=== PATIENT | female | born 2000 | race Hispanic/Latino ===

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

== ENCOUNTER 2025-01-28 01:07 | Emergency (ER) | payer MEDICARE ==
[~2025-01-28] VITALS: Ht 149.9 cm; Wt 77.1 kg
[2025-01-28 01:43] VITALS: PULSE 81; RESP 18; TEMP 98.5
[2025-01-28 02:28] LABS: BASOPHILS % 0.3 % (0.0-1.0); EOSINOPHILS # (AUTO) 0.1 (0.0-0.4); EOSINOPHILS % 0.9 % (0.0-6.0); HEMATOCRIT 34.5 % (34.2-44.1); HEMOGLOBIN 11.4 g/dL (12.0-16.0); LYMPHOCYTES % 22.1 % (18.0-39.1); MEAN CORPUSCULAR HEMOGLOBIN 27.7 pg (28-32); MEAN CORPUSCULAR VOLUME 83.7 fL (81-99); MONOCYTES % 11.1 % (4.4-11.3); NEUTROPHILS % 65.3 % (38.7-80.0); PLATELET COUNT 346 x10e3/uL (140-360); RED BLOOD COUNT 4.12 x10e6/uL (3.6-5.1); RED CELL DISTRIBUTION WIDTH 14.5 % (11.7-14.4); WHITE BLOOD COUNT 9.16 x10e3/uL (4.8-10.8)
[2025-01-28 02:35] LABS: BILIRUBIN,URINE NEGATIVE (NEGATIVE); CLARITY,URINE SL CLOUDY (CLEAR); COLOR,URINE YELLOW (YELLOW); GLUCOSE, URINE NEGATIVE (NEGATIVE); KETONES,URINE TRACE (NEGATIVE); LEUKOCYTE ESTERASE ,URINE NEGATIVE (NEGATIVE); NITRITE,URINE NEGATIVE (NEGATIVE); PH,URINE 6.5 (5 - 7); PROTEIN,URINE DIPSTICK 1+ (NEGATIVE); URINE UROBILINOGEN 1 mg/dL (0.2 - 1)
[2025-01-28 02:51] LABS: ANION GAP 13.3 mmol/L (8-16); CALCIUM 8.8 mg/dL (8.4-10.2); CREATININE, SERUM 0.7 mg/dL (0.57-1.11)
[2025-01-28 02:58] LABS: BACTERIA,URINE MANY /HPF
[2025-01-28 02:59] LABS: EPITHELIAL CELLS,URINE MODERATE /LPF
[2025-01-28 03:00] LABS: POTASSIUM 3.3 mmol/L (3.5-5.1)
[2025-01-28 04:17] VITALS: BP 130/60; PULSE 66; RESP 17; TEMP 97.8; O2SAT 100
== END 2025-01-28 04:15 | disposition home or self-care (01) ==
LOC: ER 01:44
DX: O03.9 Complete or unspecified spontaneous abortion without complication (principal); N39.0 Urinary tract infection, site not specified; R10.31 Right lower quadrant pain
CPT/HCPCS: 36415; 76801; 76817; 80048; 81001; 84702; 85025; 99284